=== PATIENT | female | born 1980 | race Caucasian/White ===

== ENCOUNTER 2024-07-15 23:51 | Emergency (ER) | payer MEDICAID ==
[~2024-07-15] VITALS: Ht 152.4 cm; Wt 99.8 kg
[2024-07-16 00:03] VITALS: BP_SYST 147; PULSE 101; RESP 20; TEMP 96.9; O2SAT 96
[2024-07-16 01:17] LABS: BASOPHILS # (AUTO) 0.1 K/uL (0.0-0.2); BASOPHILS % (AUTO) 0.8 % (0.0-2.0); EOSINOPHILS # (AUTO) 0.2 K/uL (0.0-0.4); EOSINOPHILS % (AUTO) 1.8 % (0.0-4.0); HEMATOCRIT 33.1 % (36-48); HEMOGLOBIN 10.6 g/dL (12.0-16.0); LYMPHOCYTES # (AUTO) 2.7 K/uL (1.0-5.5); LYMPHOCYTES % (AUTO) 28.6 % (20.5-51.5); MEAN CORPUSCULAR HEMOGLOBIN 21 pg (27-31); MEAN CORPUSCULAR HGB CONC 32 % (32-36); MEAN CORPUSCULAR VOLUME 67 fL (79.0-98.0); MONOCYTES # (AUTO) 0.8 K/uL (0.0-1.0); NEUTROPHILS # (AUTO) 5.6 K/uL (1.8-7.7); NEUTROPHILS % (AUTO) 59.8 % (40.0-70.0); PLATELET COUNT (AUTO) 418 K/uL (130-430); RED BLOOD CELL COUNT(AUTO) 4.95 MIL/uL (4.2-6.2); RED CELL DISTRIBUTION WIDTH 17.9 % (9.0-15.0); WHITE BLOOD COUNT (AUTO) 9.4 K/uL (4.8-10.8)
[2024-07-16 01:27] LABS: BILIRUBIN,URINE 1+ (NEGATIVE); BLOOD, URINE NEGATIVE (NEGATIVE); CLARITY/URINE CLEAR (CLEAR); COLOR,URINE YELLOW (YELLOW); GLUCOSE,URINE NEGATIVE (NEGATIVE); KETONES,URINE TRACE (NEGATIVE); LEUKOCYTE ESTERASE ,URINE NEGATIVE (NEGATIVE); NITRITE, URINE NEGATIVE (NEGATIVE); PROTEIN URINE TRACE (NEGATIVE)
[2024-07-16 01:30] LABS: ALANINE AMINOTRANSFERASE 20 U/L (12-78); ALBUMIN 3.5 g/dL (3.4-4.8); ANION GAP 7 (5-15); ASPARTATE AMINOTRANSFERASE 18 U/L (10-37); CALCIUM 8.7 mg/dL (8.4-11.0); CARBON DIOXIDE 27 mmol/L (23-29); CHLORIDE 102 mmol/L (98-107); CREATININE 0.87 mg/dL (0.55-1.30); GFR AFRICAN AMERICAN 91 mL/min (>90); GFR NON AFRICAN-AMERICAN 76 mL/min (>90); GLUCOSE 104 mg/dL (74-106); POTASSIUM 3.3 mmol/L (3.5-5.1); SODIUM SERUM 136 mmol/L (136-145); TOTAL BILIRUBIN 0.3 mg/dL (0.0-1.0); TOTAL PROTEIN, SERUM 7.5 g/dL (6.4-8.3); UREA NITROGEN, BLOOD 14 mg/dL (8-21)
[2024-07-16 01:31] LABS: BILIRUBIN,DIRECT 0.1 mg/dL (0.0-0.3)
[2024-07-16 01:33] LABS: INR 0.9 (0.8-1.2)
[2024-07-16 01:48] LABS: URINE AMPHETAMINE POSITIVE (NEG <=500)
[2024-07-16 01:49] LABS: BARBITURATE, URINE NEGATIVE (NEG <=200); BENZODIAZEPINE, URINE NEGATIVE (NEG <=150); CANNABINOID, URINE NEGATIVE (NEG <=50); COCAINE, URINE NEGATIVE (NEG <=150); METHAMPHETAMINES SCREEN,URINE POSITIVE (NEG <=500); OPIATE, URINE POSITIVE (NEG <=100); PHENCYCLIDINE SCREEN,URINE NEGATIVE (NEG <=25); UR TRICYCLIC ANTIDEPRESSANTS NEGATIVE (NEG <=300); URINE METHADONE NEGATIVE (NEG <=200); URINE OXYCODONE SCREEN NEGATIVE (NEG <=100)
[2024-07-16] MEDS: FUROSEMIDE 100 MG/10 ML VIAL IVP ONE (01:50)
[2024-07-16 02:14] LABS: BACTERIA,URINE RARE /HPF (None Seen)
[2024-07-16 03:00] VITALS: BP_SYST 125; PULSE 80; RESP 18; TEMP 98.6; O2SAT 95
[2024-07-16] MEDS ORDERED: SULF1TAB47 PO (03:09)
[2024-07-16] MEDS ORDERED: FURO-150 PO (03:09)
[2024-07-16] MEDS ORDERED: POTA-197 PO (03:13)
== END 2024-07-16 03:20 | disposition home or self-care (01) ==
LOC: SED 23:51
DX: L03.116 Cellulitis of left lower limb (principal); L03.115 Cellulitis of right lower limb; I11.0 Hypertensive heart disease with heart failure; I50.9 Heart failure, unspecified; R22.43 Localized swelling, mass and lump, lower limb, bilateral; R07.89 Other chest pain; F17.200 Nicotine dependence, unspecified, uncomplicated; F15.90 Other stimulant use, unspecified, uncomplicated; J44.9 Chronic obstructive pulmonary disease, unspecified; Z79.899 Other long term (current) drug therapy; Z79.2 Long term (current) use of antibiotics
CPT/HCPCS: 36415; 71045; 80048; 80076; 80307; 81000; 81001; 81015; 83880; 84484; 85025; 85379; 85610; 85730; 93005; 96374; 99285; J1940